=== PATIENT | female | born 1945 | race Caucasian/White ===

== ENCOUNTER → 2018-12-06 | Outpatient (CLI) | payer MEDICARE, OTHER ==
[~2018-12-06] MED LIST: TRIHYD253B PO
== END | disposition home or self-care (01) ==
LOC: LAB SHORT 12:28 → PLD 12:28
DX: C44.311 Basal cell carcinoma of skin of nose (principal); L82.1 Other seborrheic keratosis
CPT/HCPCS: 88305

== ENCOUNTER → 2020-01-21 | Outpatient (CLI) | payer MEDICARE, OTHER ==
[2020-01-21 13:37] LABS: Stool Occult Bld Immuno 1 Negative (NEGATIVE); Stool Occult Bld Immuno 2 Negative (NEGATIVE)
== END | disposition home or self-care (01) ==
LOC: LAB SHORT 06:05 → LAB 06:05
PROVIDERS: Internal Medicine Gastroenterology
DX: Z12.11 Encounter for screening for malignant neoplasm of colon (principal)
CPT/HCPCS: G0328

== ENCOUNTER → 2020-02-10 | Outpatient (CLI) | payer MEDICARE, OTHER | END | disposition home or self-care (01) | LOC: LAB SHORT 14:36 → PLD 14:36 | DX: D22.61 Melanocytic nevi of right upper limb, including shoulder (principal) | CPT/HCPCS: 88305 ==

== ENCOUNTER → 2021-06-21 | Outpatient (CLI) | payer OTHER ==
[2021-06-21 09:40] LABS: Source, Urine Clean Catch
[2021-06-21 11:53] LABS: Appearance, Urine Clear (Clear); Bilirubin, Urine Neg (Neg); Blood, Urine Neg (Neg); Color, Urine Yellow (P-Yellow); Glucose Qualitative, Urine Neg (Neg); Ketones, Urine Neg (Neg); Leukocyte Esterase, Urine Neg (Neg); Nitrite, Urine Neg (Neg); Protein, Urine Neg (Neg); Urobilinogen, Urine NORM (Normal)
== END | disposition home or self-care (01) ==
LOC: LAB SHORT 09:38 → LAB FUT 06-16 07:25
PROVIDERS: Internal Medicine
DX: R82.90 Unspecified abnormal findings in urine (principal)
CPT/HCPCS: 81003

== ENCOUNTER → 2021-08-16 | Outpatient (CLI) | payer OTHER ==
[2021-08-17 14:17] LABS: Stool Occult Bld Immuno 1 Negative (NEGATIVE); Stool Occult Bld Immuno 2 Negative (NEGATIVE)
== END | disposition home or self-care (01) ==
LOC: LAB 11:08 → LAB SHORT 11:08
PROVIDERS: Internal Medicine Gastroenterology
DX: Z09 Encounter for follow-up examination after completed treatment for conditions other than malignant neoplasm (principal); Z86.010 Personal history of colon polyps
CPT/HCPCS: 82274

== ENCOUNTER 2022-07-14 09:41 | Day surgery (SDC) | payer OTHER ==
[~2022-07-14] VITALS: Ht 162.6 cm; Wt 84.4 kg
[2022-07-14] MEDS ORDERED: CALCITRIOL0.25 MC4 PO (10:56)
--- NOTE | 2022-07-14 11:04 | NUR ---
07/14/22 1104 Jaelyn Kelley 1053, LUIS MIGUEL 1050
[2022-07-14 11:46] VITALS: BP 157/72
== END 2022-07-14 12:10 | disposition home or self-care (01) ==
LOC: ORSCSDS 09:41
PROVIDERS: Ophthalmology
PROC: 08DK3ZZ Extraction of Left Lens, Percutaneous Approach (ICD-10-PCS; principal; 2022-07-14 12:00)
DX: H25.12 Age-related nuclear cataract, left eye (principal); I12.9 Hypertensive chronic kidney disease with stage 1 through stage 4 chronic kidney disease, or unspecified chronic kidney disease; N18.9 Chronic kidney disease, unspecified; J45.909 Unspecified asthma, uncomplicated; E78.5 Hyperlipidemia, unspecified; Z79.899 Other long term (current) drug therapy
CPT/HCPCS: J2001; J2250; J3010; J3301; J7040; V2632

== ENCOUNTER 2022-07-21 08:14 | Day surgery (SDC) | payer OTHER ==
[~2022-07-21] VITALS: Ht 162.6 cm; Wt 83.4 kg
[~2022-07-21 08:14] MED LIST changes: +CALCITRIOL0.25 MC4 PO
--- NOTE | 2022-07-21 08:58 | NUR ---
07/21/22 0858 Tamra Lugo CALL LIGHT WITHIN REACH. TETRACAINE IN LEFT EYE AT 842 AND PLEDGETT IN AT 0844.
[2022-07-21 09:58] VITALS: BP 178/84
--- NOTE | 2022-07-21 10:37 | NUR ---
07/21/22 1037 Michael Elizondo IV REMOVED. PT ADVISED TO MONITOR BLOOD PRESSURE AT HOME AND FOLLOW UP WITH PCP REGARDING HYPERTENSION.
== END 2022-07-21 10:30 | disposition home or self-care (01) ==
LOC: ORSCSDS 08:14
PROVIDERS: Ophthalmology
PROC: 08RJ3JZ Replacement of Right Lens with Synthetic Substitute, Percutaneous Approach (ICD-10-PCS; principal; 2022-07-21 09:30)
DX: H25.11 Age-related nuclear cataract, right eye (principal); I12.9 Hypertensive chronic kidney disease with stage 1 through stage 4 chronic kidney disease, or unspecified chronic kidney disease; N18.9 Chronic kidney disease, unspecified; J45.909 Unspecified asthma, uncomplicated; Z79.899 Other long term (current) drug therapy
CPT/HCPCS: J2250; J3010; J3301; J7040; V2632

== ENCOUNTER → 2022-08-19 | Outpatient (CLI) | payer OTHER ==
[2022-08-23 13:28] LABS: Stool Occult Bld Immuno 1 Negative (NEGATIVE); Stool Occult Bld Immuno 2 Negative (NEGATIVE); Stool Occult Bld Immuno 3 Positive (NEGATIVE)
== END | disposition home or self-care (01) ==
LOC: LAB 08:14 → LAB SHORT 08:14
PROVIDERS: Internal Medicine Gastroenterology
DX: Z12.11 Encounter for screening for malignant neoplasm of colon (principal)
CPT/HCPCS: 82274

== ENCOUNTER 2022-11-02 08:41 | Day surgery (SDC) | payer OTHER ==
[~2022-11-02] VITALS: Ht 162.6 cm; Wt 80.6 kg
[~2022-11-02 08:41] MED LIST changes: +FURO20 PO; +POTA8 PO
[2022-11-02 10:48] VITALS: BP 135/78
== END 2022-11-02 10:51 | disposition home or self-care (01) ==
LOC: ORSCSDS 08:41
PROVIDERS: Internal Medicine Gastroenterology
PROC: 0DBL8ZX Excision of Transverse Colon, Via Natural or Artificial Opening Endoscopic, Diagnostic (ICD-10-PCS; principal; 2022-11-02 10:00)
PROC: 0DBH8ZX Excision of Cecum, Via Natural or Artificial Opening Endoscopic, Diagnostic (ICD-10-PCS; principal; 2022-11-02 10:00)
DX: R19.5 Other fecal abnormalities (principal); R10.33 Periumbilical pain; D12.0 Benign neoplasm of cecum; D12.3 Benign neoplasm of transverse colon; K57.30 Diverticulosis of large intestine without perforation or abscess without bleeding; I10 Essential (primary) hypertension; Z79.899 Other long term (current) drug therapy; J45.909 Unspecified asthma, uncomplicated
CPT/HCPCS: 88305; J2704; J7120